=== PATIENT | female | born 1985 ===

== ENCOUNTER 2024-06-24 16:27 | Inpatient (IN) | payer MEDICAID ==
[2024-06-24] MEDS ORDERED: Sodium Chloride 0.9% 2.5 ML Syringe FLUSH PRN (16:31)
[2024-06-24] MEDS ORDERED: Carboprost Tromethamine 250 MCG/1 mL Vial IM PRN (16:31)
[2024-06-24] MEDS ORDERED: Sodium Chloride 0.9% 10 ML Syringe FLUSH PRN (16:31)
[2024-06-24] MEDS ORDERED: Sodium Chloride 0.9% 20 ML SDV IV PRN (16:31)
[2024-06-24] MEDS ORDERED: Methylergonovine 0.2 MG/1 ML Amp IM PRN (16:31)
[2024-06-24] MEDS ORDERED: Water For Irrigation,Sterile 1,000 ML Container IRR PRN (16:31)
[2024-06-24] MEDS ORDERED: Lidocaine 1% 50 ML MDV INJECT PRN (16:31)
[2024-06-24] MEDS ORDERED: Misoprostol 200 MCG Tab PO PRN (16:31)
[2024-06-24] MEDS ORDERED: Tranexamic Acid IN NACL,ISO-OS 1,000 MG in Premix Bag 1 BAG IV PRN (16:31)
[2024-06-24] MEDS: Labetalol 100 MG/20 ML MDV IVPUSH PRN (16:40)
[2024-06-24] MEDS ORDERED: Oxytocin/0.9 % Sodium Chloride 30 UNIT/500 ML BAG IV SCH (16:45)
[2024-06-24 17:18] LABS: BILIRUBIN,URINE NEGATIVE (NEGATIVE); COLOR,URINE YELLOW; GLUCOSE,URINE NEGATIVE (NEGATIVE); KETONES,URINE NEGATIVE (NEGATIVE); LEUKOCYTE ESTERASE,URINE NEGATIVE (NEGATIVE); NITRITE,URINE NEGATIVE (NEGATIVE); OCCULT BLOOD,URINE TRACE-INTACT (NEGATIVE); PROTEIN,URINE 30 mg/dL (NEGATIVE)
[2024-06-24 17:20] LABS: APPEARANCE,URINE SLT CLOUDY
[2024-06-24 17:21] LABS: HEMATOCRIT 52.4 % (37.0-47.0); HEMOGLOBIN 18.2 g/dL (12.0-16.0); MEAN CORPUSCULAR HEMOGLOBIN 30.7 pg (28.0-32.0); MEAN CORPUSCULAR HGB CONC 34.7 g/dL (32.0-36.0); MEAN CORPUSCULAR VOLUME 88.5 fL (83.0-99.0); MEAN PLATELET VOLUME 11.4 fL (9.4-12.3); PLATELET COUNT,PLT 131 K/uL (150-400); RED BLOOD CELL COUNT 5.92 M/uL (4.10-5.30); WHITE BLOOD CELL COUNT,WBC 5.54 K/uL (3.9-11.3)
[2024-06-24 17:27] LABS: BACTERIA,URINE FEW (NEGATIVE); EPITHELIAL CELLS,URINE MODERATE (NONE-FEW); MUCUS,URINE MODERATE (NONE-MOD); RBC,URINE 0-2 (0-2/HPF)
[2024-06-24 17:36] LABS: PROTEIN CREATININE RATIO,URINE 0.5; PROTEIN,URINE RANDOM 58.7 mg/dL (<11.9)
[2024-06-24 17:43] LABS: A/G RATIO 0.6 (0.9-1.6); ALANINE AMINOTRANSFERASE,ALT 18 IU/L (14-63); ALBUMIN 2.5 g/dL (3.4-5.0); ALKALINE PHOSPHATASE 165 U/L (46-116); ASPARTATE AMNIOTRANSFERASE,AST 17 IU/L (15-37); BILIRUBIN TOTAL 0.3 mg/dL (0.2-1.0); BLOOD UREA NITROGEN,BUN 10 mg/dL (7.0-18.0); CALCIUM 9.3 mg/dL (8.5-10.1); CARBON DIOXIDE,CO2 23.1 mmol/L (21.0-32.0); CHLORIDE,CL 104 mmol/L (98-107); CREATININE 0.7 mg/dL (0.6-1.0); ESTIMATED GFR 115 mL/min (>60); GLUCOSE RANDOM 96 mg/dL (74-106); POTASSIUM,K 4.1 mmol/L (3.5-5.1); PROTEIN TOTAL,TP 6.5 g/dL (6.4-8.2); SODIUM,NA 139 mmol/L (136-145); URIC ACID 4.2 mg/dL (2.6-7.2)
[2024-06-24] MEDS: Labetalol 100 MG Tab PO STA (17:50)
[2024-06-24] MEDS: Misoprostol 25 MCG (1/4 of 100 MCG) Tab PO PRN (17:50)
[2024-06-24] MEDS: Misoprostol 25 MCG (1/4 of 100 MCG) Tab VAG PRN (17:53)
[2024-06-24] MEDS: Labetalol 100 MG Tab ONE (18:05)
[2024-06-24] MEDS ORDERED: Phenylephrine HCl In 0.9% NaCl 1 MG/10 ML Syringe IVPUSH PRN (18:41)
[2024-06-24] MEDS ORDERED: ePHEDrine 50 MG/ML SDV IVPUSH PRN ×2 (18:41)
[2024-06-24] MEDS ORDERED: dexmedeTOMIDine HCl 200 MCG/2 ML SDV EPIDUR SCH (18:45)
[2024-06-24] MEDS: Labetalol 100 MG Tab PO ONE (20:44)
[2024-06-25] MEDS: Lactated Ringers 1,000 ML IV SCH (03:20)
[2024-06-25] MEDS: Terbutaline 1 MG/ML SDV SUBCUT PRN (03:52)
[2024-06-25] MEDS: Butorphanol 2 MG/ML SDV IVPUSH PRN (04:00)
[2024-06-25] MEDS: Labetalol 100 MG Tab PO ONE (05:01)
[2024-06-25] MEDS ORDERED: Magnesium Sulfate/Water 100 ML ONE (11:13)
[2024-06-25] MEDS ORDERED: Calcium Gluconate 10% 1 GM/10 ML SDV IV PRN (11:15)
[2024-06-25] MEDS: Magnesium Sulfate/Water 4 GM in Premix Bag 1 BAG IV ONE (11:35)
[2024-06-25] MEDS: Magnesium Sulfate/Water 20 GM/500 ML BAG IV SCH (11:43)
[2024-06-25] MEDS: Ropivacaine HCl/PF 400 MG in Premix Bag 1 BAG EPIDUR SCH (12:32)
[2024-06-25] MEDS: Oxytocin/0.9 % Sodium Chloride 30 UNIT/500 ML BAG IV SCH (14:37)
[2024-06-25] MEDS: NIFEdipine 10 MG Cap PO PRN (15:19)
[2024-06-25] MEDS ORDERED: fentaNYL 100 MCG/2 ML SDV ONE ×2 (16:05→18:39)
[2024-06-25] MEDS ORDERED: Bupivacaine 0.5% 30 ML SDV ONE (16:05)
[2024-06-25] MEDS ORDERED: Ondansetron 4 MG/2 ML SDV ONE (18:37)
[2024-06-25] MEDS ORDERED: Azithromycin 500 MG Vial ONE (18:46)
[2024-06-25] MEDS ORDERED: ceFAZolin 2 GM Vial ONE (18:47)
[2024-06-25] MEDS ORDERED: Dexamethasone 4 MG/ML 5 ML MDV ONE (18:52)
[2024-06-25] MEDS ORDERED: Oxytocin 10 Units/1 ML SDV ONE ×2 (18:52→20:03)
[2024-06-25] MEDS ORDERED: Bisacodyl 10 MG Supp RECTAL PRN (18:54)
[2024-06-25] MEDS ORDERED: diphenhydrAMINE 50 MG/ML SDV IVPUSH PRN ×2 (18:54→19:21)
[2024-06-25] MEDS ORDERED: Methylergonovine 0.2 MG/1 ML Amp IM PRN (18:54)
[2024-06-25] MEDS ORDERED: Acetaminophen/oxyCODONE 325-5 MG Tab PO PRN ×2 (18:54→19:21)
[2024-06-25] MEDS ORDERED: Lanolin 100% Cream 7 GM Tube TOP PRN (18:54)
[2024-06-25] MEDS ORDERED: Oxytocin 10 Units/1 ML SDV IM PRN (18:54)
[2024-06-25] MEDS ORDERED: Ondansetron 4 MG/2 ML SDV IVPUSH PRN ×3 (18:54→19:21)
[2024-06-25] MEDS ORDERED: Misoprostol 200 MCG Tab RECTAL PRN (18:54)
[2024-06-25] MEDS ORDERED: Tranexamic Acid 1,000 MG/10 ML Vial ONE (18:55)
[2024-06-25] MEDS ORDERED: Lactated Ringers 1,000 ML IV SCH (19:00)
[2024-06-25] MEDS ORDERED: Ropivacaine 0.5% 5 MG/ML 30 ML SDV ONE (19:00)
[2024-06-25] MEDS ORDERED: Morphine PF 10 MG/10 ML SDV ONE (19:01)
[2024-06-25] MEDS ORDERED: Calcium Chloride 10% 1 GM/10 ML Syringe ONE (19:04)
[2024-06-25] MEDS ORDERED: Morphine 2 MG/ML SYRINGE IVPUSH PRN (19:21)
[2024-06-25] MEDS ORDERED: droPERidol 5 MG/2 ML SDV IVPUSH PRN (19:21)
[2024-06-25] MEDS ORDERED: fentaNYL 50 MCG/ML SDV IVPUSH PRN (19:21)
[2024-06-25] MEDS ORDERED: Nalbuphine 10 MG/1 ML Vial IVPUSH PRN (19:21)
[2024-06-25] MEDS ORDERED: ePHEDrine 50 MG/ML SDV IVPUSH PRN (19:21)
[2024-06-25] MEDS ORDERED: Albuterol 0.083% 2.5 MG/3 ML Neb Soln NEB PRN (19:21)
[2024-06-25] MEDS ORDERED: fentaNYL 100 MCG/2 ML SDV IVPUSH PRN (19:21)
[2024-06-25] MEDS ORDERED: Naloxone 0.4 MG/ML SDV IVPUSH PRN (19:21)
[2024-06-25] MEDS ORDERED: HYDROmorphone 1 MG/ML Syringe IVPUSH PRN (19:21)
[2024-06-25] MEDS ORDERED: Metoclopramide 10 MG/2 ML SDV IVPUSH PRN (19:21)
[2024-06-25] MEDS ORDERED: Phenylephrine HCl In 0.9% NaCl 1 MG/10 ML Syringe IVPUSH PRN (19:21)
[2024-06-25] MEDS: NIFEdipine 30 MG Tab.ER PO ONE (21:00)
[2024-06-25] MEDS: Docusate Sodium 100 MG Cap PO SCH (22:32)
[2024-06-25] MEDS: Acetaminophen 1,000 MG in Premix Bag 1 BAG IV SCH (22:33)
[2024-06-25] MEDS: Ketorolac 30 MG/ML SDV IVPUSH SCH (22:56)
[2024-06-26] MEDS: Ketorolac 30 MG/ML SDV IVPUSH SCH (05:00)
[2024-06-26 06:10] LABS: HEMATOCRIT 24.8 % (37.0-47.0); HEMOGLOBIN 8.3 g/dL (12.0-16.0)
[2024-06-26] MEDS: NIFEdipine 30 MG Tab.ER PO SCH (08:47)
[2024-06-26] MEDS: Magnesium Sulfate/Water 20 GM/500 ML BAG ONE (08:48)
[2024-06-26] MEDS: Sodium Ferric Gluconate Cmplex 125 MG in Sodium Chloride 0.9% 100 ML IV ONE (11:47)
[2024-06-27] MEDS ORDERED: Ibuprofen 800 MG Tab PO PRN (01:00)
[2024-06-27] MEDS: Ibuprofen 800 MG Tab PO SCH (05:19)
[2024-06-27] MEDS: Acetaminophen/oxyCODONE 325-5 MG Tab PO PRN (07:59)
== END 2024-06-28 12:20 | disposition home or self-care (01) | DRG 787 ==
LOC: MW.OBCHECK 16:27 → MW.OB 16:29 → MW.OBCHECK 16:31 → OBSVTOIN 06-25 18:54 → MW.OB 06-26 01:18
PROVIDERS: ADMIT Obstetrics & Gynecology Obstetrics; ATTEND Obstetrics & Gynecology Obstetrics
PROC: 10D00Z1 Extraction of Products of Conception, Low, Open Approach (ICD-10-PCS; 2024-06-25)
PROC: 10907ZC Drainage of Amniotic Fluid, Therapeutic from Products of Conception, Via Natural or Artificial Opening (ICD-10-PCS; principal; 2024-06-25 18:44)
DX: O14.14 Severe pre-eclampsia complicating childbirth (principal); D62 Acute posthemorrhagic anemia; Z37.0 Single live birth; Z3A.40 40 weeks gestation of pregnancy; O76 Abnormality in fetal heart rate and rhythm complicating labor and delivery; O77.0 Labor and delivery complicated by meconium in amniotic fluid; O90.81 Anemia of the puerperium
CPT/HCPCS: 01967; 01968; 36415; 51702; 59025; 64488; 80053; 81001; 82570; 83735; 84156; 84550; 85014; 85018; 85027; 86592; 86850; 86900; 86901; A9270-GY; J0131; J0456; J0595; J0665; J0690; J1100; J1885; J1921; J2274; J2405; J2590; J2795; J2916; J3010; J3105; J3475; J3490; J7120